=== PATIENT | female | born 1965 | race Caucasian/White ===

== ENCOUNTER 2018-03-29 00:40 | Inpatient (IN) | payer MEDICARE ==
[2018-03-29] MEDS ORDERED: Ondansetron ODT 8 MG TAB ONE (03:04)
[2018-03-29] MEDS ORDERED: Diabetic Tussin 200 MG/10 ML UDCUP PO PRN (07:05)
[2018-03-29] MEDS ORDERED: Senokot 8.6 MG TAB PO PRN (07:05)
[2018-03-29] MEDS ORDERED: Eucerin (Mineral Oil/Petrolatum,White) 30 gm Jar TOP PRN (07:05)
[2018-03-29] MEDS ORDERED: hydrALAZINE 20 MG/ML VIAL SLOW IVP PRN (07:05)
[2018-03-29] MEDS ORDERED: Ondansetron ODT 4 MG TAB PO PRN (07:05)
[2018-03-29] MEDS ORDERED: Dextrose 50% Abboject 50 ML SYRINGE SLOW IVP PRN (07:05)
[2018-03-29] MEDS ORDERED: Artificial Tears 18 DROP/0.9 ML EA EYE PRN (07:05)
[2018-03-29] MEDS ORDERED: Loratadine 10 MG TAB PO PRN (07:05)
[2018-03-29] MEDS ORDERED: Milk Of Magnesia 30 ML UDCUP PO PRN (07:05)
[2018-03-29] MEDS ORDERED: Loperamide HCl 2 MG CAP PO PRN (07:05)
[2018-03-29] MEDS ORDERED: Sodium Chloride 0.65% Nasal 44 ML BOT EA NARE PRN (07:05)
[2018-03-29] MEDS ORDERED: Mag-Al 1200 mg/1200 mg/30 ML UDCUP PO PRN (07:05)
[2018-03-29] MEDS ORDERED: Ondansetron HCl/PF 4 MG/2 ML Vial IVP PRN (07:05)
[2018-03-29] MEDS ORDERED: Dextrose 5% in Water 1,000 ML IV PRN (07:05)
[2018-03-29] MEDS ORDERED: HumaLOG 300 UNITS/3 ML VIAL SC PRN (07:05)
[2018-03-29] MEDS ORDERED: Chloraseptic Spray 180 ml Bottle PO PRN (07:05)
[2018-03-29] MEDS ORDERED: Nitroglycerin 0.4 MG TAB (25 Tab Bottle) SL PRN (07:05)
--- NOTE | 2018-03-29 10:36 | HP ---
PRIMARY CARE PHYSICIAN: Dr. Alicia Orourke. REASON FOR ADMISSION: Transfer from [facility] for new onset congestive heart failure a s well as nausea and vomiting. HISTORY OF PRESENT ILLNESS: A 52-year-old female who looks older than her stated age who has underly ing history of diabetes and hypertension who initially went to [facility] for complaint of nausea and vomiting. The patient has intermittent nausea and vomiting for the last 3 d ays. She is experiencing dyspnea on exertion for 2 weeks. She also has orthopnea as well as PND and bilateral lower extremity pitting edema, which was gradually getting worse since 4 days. The patien t denies any fever or chills. The patient does report that she has ulcer over left heel on plantar a spect and that is why she was given antibiotic therapy by primary care physician. The patient is dis abled. The patient lives with her in [place]. She does report dyspnea on exertion. She de nies any UTI symptoms. She denies any constipation, diarrhea, melena or hematochezia. She was satur ating normal in the emergency room. Patient reported that she was told that she has congestive heart failure, but she does not know any more detail about her congestive heart failure. REVIEW OF SYSTEMS: The following complete review of systems was negative, unless otherwise mentioned in the HPI or below: Constitutional: Weight loss or gain, ability to conduct usual activities. Skin: Rash, itching. Eyes: Double vision, pain. ENT/Mouth: Nose bleeding, neck stiffness, pain, tenderness. Cardiovascular: Palpitations, dyspnea on exertion, orthopnea. Respiratory: Shortness of breath, wheezing, cough, hemoptysis, fever or night sweats. Gastrointestinal: Poor appetite, abdominal pain, heartburn, nausea, vomiting, constipation, or diarr hea. Genitourinary: Urgency, frequency, dysuria, nocturia. Musculoskeletal: Pain, swelling. Neurologic/Psychiatric: Anxiety, depression. Allergy/Immunologic: Skin rash, bleeding tendency. Please see my HPI for pertinent positive and negative. All other review of systems reviewed and nega tive except as mentioned in the HPI. ALLERGIES: CECLOR, CIPROFLOXACIN and TRAMADOL. CURRENT HOME MEDICATIONS: Gabapentin 600 mg p.o. 3 times daily, metoprolol tartrate 50 mg p.o. daily , Lasix 40 mg p.o. b.i.d., Zoloft 100 mg p.o. daily, Aldactone 25 mg p.o. daily, lisinopril 2.5 mg p. o. daily, Lantus 12 units subcu 3 times daily, Humulin R 15 units 3 times daily. PAST MEDICAL HISTORY: Congestive heart failure, type of congestive heart failure not known, but susp ecting systolic heart failure, hypertension, diabetes type 2, diabetic neuropathy, diabetic nephropat hy, dyslipidemia, obesity, paroxysmal atrial fibrillation and peripheral vascular disease. PAST PSYCHIATRIC HISTORY: Anxiety and depression. PAST SURGICAL HISTORY: Amputation of right great toe, appendicectomy, cholecystectomy, history of ab scess to left breast required surgical drainage, tubal ligation. SOCIAL HISTORY: Patient is . She is on disability. No history of tobacco, alcohol or illici t drug abuse. FAMILY HISTORY: No strong family history of premature coronary artery disease, stroke or cancer. EMERGENCY ROOM COURSE: Patient is given Zofran 8 mg. The patient is given Lasix 80 mg, aspirin 324 mg, nitroglycerin patch at [place] [facility]. PHYSICAL EXAMINATION: VITAL SIGNS: On arrival, blood pressure 159/101, pulse 101, respiratory rate 16, temperature 98.1, s aturation 96% on room air, and weight 113.4 kilograms. GENERAL: Patient is currently alert, awake, no obvious acute distress. HEAD: Normocephalic, atraumatic. EYES: Pupils round, reactive to light. Extraocular muscle intact. ENT: Oropharynx within normal limits. Moist mucous membranes. No oral lesion, no pharyngeal erythe ma, no exudate. NECK: Supple, no JVD, no thyromegaly, no carotid bruit. LUNGS: Coarse breath sounds. No wheezing, no rhonchi, no rales, no accessory muscles of respiration in use. CARDIAC: S1 and S2 regular. No murmur elicited, no gallop, no rub. ABDOMEN: Obesity present. Bowel sounds present, nontender, nondistended. No organomegaly, no mass, no suprapubic tenderness. BACK: Examination unremarkable, no CVA tenderness. EXTREMITIES: Upper extremity passive movement of all joints are normal. Lower extremity bilateral + 4 pitting edema noted. Patient does have amputation of right great toe and patient does have diabeti c ulcer on the left heel. NEUROLOGIC: Nonfocal examination. SKIN: No skin rash. Skin grafting was done from her back which is healed scar. PSYCHIATRIC: Normal affect. IMAGING DATA AND SIGNIFICANT LABORATORY DATA: 1. EKG showing normal sinus rhythm, PVC, nonspecific intraventricular block. 2. Chest x-ray: Cardiomegaly, no acute process. 3. CBC: WBC 9.3, hemoglobin 12.3, platelet 255. 4. BMP: Sodium 138, potassium 3.7, chloride 99, carbon dioxide 25, anion gap 18, BUN 14, creatinine 1.24, glucose 385, calcium 9.6. 5. LFT: AST 14, ALT 12, alkaline phosphatase 94, albumin 3.5, lipase 22, CK-MB 1.5, troponin 0.010. BNP 2174.3. Urinalysis suggestive of suspected infection. ASSESSMENT AND PLAN/IMPRESSION: 1. Acute on chronic congestive heart failure exacerbation, suspecting systolic heart failure. The p atient has orthopnea, PND, pitting edema, elevated BNP. The patient will require admission for diure sis. The patient will be given with lisinopril 40 mg IV b.i.d., fluid restriction 1500 mL per day. We will also resume lisinopril 2.5 mg p.o. daily, Coreg 3.125 mg p.o. b.i.d., and Aldactone 25 mg p.o . daily. We will monitor input and output chart, daily weight and replace electrolytes as needed bas is. We will adjust cardiac medication depending upon hemodynamics. We will obtain echocardiography. Cardiac rehabilitation will be consulted. Dietitian will be consulted and heart failure education is given. 2. Diabetic foot ulcer on the left heel. Wound care team will be consulted. We will start empiric antibiotic therapy with vancomycin. 3. Diabetes mellitus type 2, uncontrolled. We will verify patient's home dose of insulin and we kishan l resume Levemir insulin as well as aggressive sliding scale Humalog insulin. Diabetic diet will be given. 4. Diabetic neuropathy. We will continue gabapentin as per home dosage 600 mg three times daily. 5. Anxiety and depression. We will continue Zoloft 100 mg p.o. daily. 6. Morbid obesity. Dietary education given and weight loss education given. Healthy lifestyle janet ures discussed with the patient. 7. Hypertension. Currently, the patient is on lisinopril, Coreg, Aldactone and Lasix. We will kimberly fy doses based on hemodynamics. 8. Chronic kidney disease stage 3. We will monitor renal function and avoid nephrotoxin agent. 9. Dyslipidemia. We will check lipid profile tomorrow morning along with TSH and then start statin therapy. 10. Deep venous thrombosis prophylaxis, Lovenox 40 mg subcu daily. 11. Gastrointestinal prophylaxis, Pepcid 20 mg p.o. b.i.d. 12. Code status: The patient is FULL CODE. The patient's is surrogate decision maker. Disposition plan based on clinical course. We are expecting patient's stay in hospital more than 2 m idnights. Plan of care discussed with the patient and family member in detail.
[2018-03-29] MEDS: Famotidine 20 MG TAB PO SCH ×2 (10:48→21:43)
[2018-03-29] MEDS: Lisinopril 2.5 MG TAB PO SCH (10:48)
[2018-03-29] MEDS: Enoxaparin Sodium 40 MG/0.4 ML SYRINGE SC SCH (10:48)
[2018-03-29] MEDS ORDERED: Vancomycin HCl 1.75 GM in Sodium Chloride 0.9% 500 ML IVPB SCH (11:00)
[2018-03-29] MEDS: Furosemide 20 MG/2 ML VIAL SLOW IVP SCH (13:05)
[2018-03-29] MEDS ORDERED: Furosemide 20 MG/2 ML VIAL SLOW IVP SCH (14:00)
[2018-03-29] MEDS: Acetaminophen 325 MG TAB PO PRN (15:54)
[2018-03-29] MEDS: Promethazine HCl 12.5 MG, Admixture Fee 1 EACH in Sodium Chloride 0.9% 50 ML IVPB PRN ×2 (15:55→22:47)
[2018-03-29] MEDS: HumaLOG 300 UNITS/3 ML VIAL SC PRN (16:38)
[2018-03-29] MEDS: Carvedilol 3.125 MG TAB PO SCH (21:43)
[2018-03-29] MEDS: Zolpidem Tartrate 5 MG TAB PO PRN (22:47)
[2018-03-30 06:05] LABS: #Basophils 0.1 thou/uL (0.0-0.2); #Eosinphils 0.2 thou/uL (0.0-0.7); #Lymphocytes 2.6 thou/uL (1.20-3.40); #Monocytes 0.7 thou/uL (0.11-0.59); %Basophils 0.6 % (0.0-1.0); %Eosinophils 2.1 % (0.0-10.0); %Lymphocytes 27.1 % (21.0-51.0); %Monocytes 7.1 % (0.0-10.0); %Neutrophils 63.1 % (42.0-75.0); Hemoglobin 10.6 g/dL (12.0-16.0); Mean Corpuscular Hemoglobin 23.5 pg (27.0-31.0); Mean Corpuscular Volume 75.8 fl (81.0-99.0); Mean Platelet Volume 9.3 fL (7.4-10.4); Platelet Count 232 thou/uL (130-400); RBC Distribution Width 15.4 % (11.5-14.5); Red Blood Cell (RBC) Count 4.52 mill/uL (4.20-5.40); White Blood Cell (WBC) Count 9.6 thou/uL (4.8-10.8)
[2018-03-30] MEDS: Furosemide 20 MG/2 ML VIAL SLOW IVP SCH ×2 (06:13→16:51)
[2018-03-30 07:19] LABS: ALT (SGPT) Less than 35 U/L (8-55); AST (SGOT) 12 U/L (5-34); Albumin 2.9 g/dL (3.5-5.0); Alkaline Phosphatase 79 U/L (40-150); Anion Gap 11 mmol/L (10-20); BUN (Urea Nitrogen) 14 mg/dL (9.8-20.1); Bilirubin, Total 0.8 mg/dL (0.2-1.2); Calc. Creatinine Clearance 107 mL/min (70-130); Calcium 8.5 mg/dL (7.8-10.44); Carbon Dioxide 29 mmol/L (22-29); Chloride 99 mmol/L (98-107); Cholesterol 109 mg/dl (< 200 Desired); Estimated GFR-MDRD 52; Glucose 155 mg/dL (70-105); HDL Cholesterol 22 mg/dL (>60 Neg Risk); LDL Cholesterol, Calculated 67 mg/dL; Magnesium 1.5 mg/dL (1.6-2.6); Protein, Total 5.9 g/dL (6.0-8.3); Sodium 136 mmol/L (136-145); Triglycerides 100 mg/dL (Less than 150); Uric Acid 8.2 mg/dL (2.6-6.0)
[2018-03-30 07:32] LABS: Potassium 2.7 mmol/L (3.5-5.1)
[2018-03-30] MEDS ORDERED: Potassium Chloride 20 MEQ TAB PO SCH (08:15)
[2018-03-30] MEDS ORDERED: Magnesium Sulfate 2 GM in Sodium Chloride 0.9% 100 ML IVPB SCH (08:30)
[2018-03-30] MEDS: Potassium Chloride 20 MEQ TAB PO SCH ×3 (10:06→16:51)
[2018-03-30] MEDS: Carvedilol 3.125 MG TAB PO SCH (10:06)
[2018-03-30] MEDS: Spironolactone 25 MG TAB PO SCH (10:07)
[2018-03-30] MEDS: Lisinopril 2.5 MG TAB PO SCH (10:07)
[2018-03-30] MEDS: Famotidine 20 MG TAB PO SCH ×2 (10:07→20:39)
[2018-03-30] MEDS: Enoxaparin Sodium 40 MG/0.4 ML SYRINGE SC SCH (10:07)
[2018-03-30] MEDS: Potassium Chloride 20 MEQ in Premix Bag 1 BAG IVPB SCH ×2 (10:08→12:30)
[2018-03-30] MEDS: Acetaminophen 325 MG TAB PO PRN (12:32)
[2018-03-30] MEDS: HumaLOG 300 UNITS/3 ML VIAL SC PRN ×2 (13:42→16:54)
--- NOTE | 2018-03-30 23:09 | PDOC.PN ---
- Subjective Encounter Start Date: 03/30/18 Encounter Start Time: 13:00 Patient seen and examined fo CHF. SOB improving. No new complaints. No overnight events - Objective Resuscitation Status: Resuscitation Status FULL:Full Resuscitation MAR Reviewed: Yes Vital Signs & Weight: Vital Signs (12 hours) Temp Pulse Resp BP Pulse Ox 03/30/18 17:00 96.1 F L 93 18 131/81 98 03/30/18 12:24 96.4 F L 90 18 141/85 H 96 Weight Admit Weight 250 lb Weight 248 lb 14.4 oz Result Diagrams: 03/30/18 05:38 03/30/18 05:38 Additional Labs: Accuchecks 03/30/18 03/30/18 03/30/18 20:30 16:55 10:37 POC Glucose 196 H 346 H 173 H 03/30/18 06:12 POC Glucose 194 H Phys Exam - Physical Examination Constitutional: NAD Respiratory: no wheezing, no rhonchi Scat rales at bases, Symmetrical Cardiovascular: RRR, no rub No heaves/pulsations Gastrointestinal: soft, non-tender, no distention, positive bowel sounds Musculoskeletal: pulses present, edema present Neurological: non-focal, moves all 4 limbs Psychiatric: normal affect, A&O x 3 Dx/Plan (1) Acute on chronic systolic (congestive) heart failure Code(s): I50.23 - ACUTE ON CHRONIC SYSTOLIC (CONGESTIVE) HEART FAILURE Status : Acute (2) DM2 (diabetes mellitus, type 2) Status: Chronic Qualifiers: Chronic kidney disease stage: stage 3 (moderate) (3) Obesity (BMI 30-39.9) Code(s): E66.9 - OBESITY, UNSPECIFIED Status: Chronic (4) Electrolyte abnormality Code(s): E87.8 - OTH DISORDERS OF ELECTROLYTE AND FLUID BALANCE, NEC Status: Acute (5) Chronic foot ulcer Code(s): L97.509 - NON-PRESSURE CHRONIC ULCER OTH PRT UNSP FOOT W UNSP SEVERITY Status: Chronic (6) HTN (hypertension) Code(s): I10 - ESSENTIAL (PRIMARY) HYPERTENSION Status: Acute - Plan DVT proph w/lovenox, DVT proph w/SCDs Replace electrolytes, Await Echo, Await Cardio consult -: Continue diuretics -: AM labs -: Change Coreg to home dose of Toprol XL Review of Systems - Review of Systems Constitutional: negative: fever, chills, sweats, weakness, malaise, other Respiratory: SOB with Excertion. negative: Cough, Dry, Shortness of Breath, Hemoptysis, Pleuritic Pain, Sputum, Wheezing Cardiovascular: edema. negative: chest pain, palpitations, orthopnea, paroxysmal nocturnal dyspnea, light headedness, other Gastrointestinal: negative: Nausea, Vomiting, Abdominal Pain, Diarrhea, Constipation, Melena, Hematochezia, Other - Medications/Allergies Allergies/Adverse Reactions: Allergies Allergy/AdvReac Type Severity Reaction Status Date / Time tramadol HCl [From Ultram] Allergy Mild Rash Verified 03/29/18 10:24 cefaclor [From Ceclor] Allergy Verified 03/29/18 10:24 ciprofloxacin [From Cipro] Allergy Verified 03/29/18 10:24 ciprofloxacin HCl Allergy Verified 03/29/18 10:24 [From Cipro] vancomycin Allergy Verified 03/29/18 15:11 Medications: Current Medications Acetaminophen (Tylenol) 650 mg PO Q4H PRN PRN Reason: Headache/Fever or Pain Last Admin: 03/30/18 12:32 Dose: 650 mg Al Hydroxide/Mg Hydroxide (Maalox) 30 ml PO Q6H PRN PRN Reason: Heartburn or Indigestion Albuterol/Ipratropium (Duoneb) 3 ml NEB [id number] PRN PRN Reason: SOB &/or Wheezing Artificial Tears (Tears Naturale) 0 drop EA EYE PRN PRN PRN Reason: Dry Eyes Aspirin (Aspirin Chewable) 81 mg PO DAILY [facility] Last Admin: 03/30/18 10:06 Dose: 81 mg Dextrose/Water (Dextrose 50%) 25 gm SLOW IVP PRN PRN PRN Reason: Hypoglycemia Enoxaparin Sodium (Lovenox) 40 mg SC 0900 [facility] Last Admin: 03/30/18 10:07 Dose: 40 mg Famotidine (Pepcid) 20 mg PO BID [facility] Last Admin: 03/30/18 20:39 Dose: 20 mg Furosemide (Lasix) 40 mg SLOW IVP 0600,1400 [facility] Last Admin: 03/30/18 16:51 Dose: 40 mg Glucagon (Glucagon) 1 mg IM PRN PRN PRN Reason: Hypoglycemia Guaifenesin (Robitussin Sf) 200 mg PO Q4H PRN PRN Reason: Cough Hydralazine HCl (Apresoline) 10 mg SLOW IVP Q4H PRN PRN Reason: Systolic BP > 180 Dextrose/Water (D5w) 1,000 mls @ 0 mls/hr IV .Q0M PRN; As Directed PRN Reason: Hypoglycemia Promethazine HCl 12.5 mg/Miscellaneous Medication 1 each/ Sodium Chloride 50.5 mls @ 202 mls/hr IVPB Q6H PRN; Protocol PRN Reason: Nausea Last Admin: 03/29/18 22:47 Dose: 50.5 mls Insulin Human Lispro (Humalog) 0 units SC .AGGRESSIVE SLIDING PRN PRN Reason: Aggressive Correctional Scale Last Admin: 03/30/18 16:54 Dose: 11 unit Insulin Human Lispro (Humalog) 0 units SC .BEDTIME SLIDING SC PRN PRN Reason: Bedtime Correctional Scale Lisinopril (Zestril) 2.5 mg PO DAILY [facility] Last Admin: 03/30/18 10:07 Dose: 2.5 mg Loperamide HCl (Imodium) 2 mg PO PRN PRN PRN Reason: Diarrhea/Loose Stools Last Admin: 03/30/18 17:08 Dose: 2 mg Loratadine (Claritin) 10 mg PO DAILYPRN PRN PRN Reason: Sinus Symptoms Magnesium Hydroxide (Milk Of Magnesium) 30 ml PO DAILYPRN PRN PRN Reason: Constipation Metoprolol Succinate (Toprol Xl) 50 mg PO DAILY [facility] Mineral Oil/White Petrolatum (Eucerin Cream) 0 gm TOP BIDPRN PRN PRN Reason: Dry Skin Nitroglycerin (Nitrostat) 0.4 mg SL Q5MIN PRN PRN Reason: Chest Pain Ondansetron HCl (Zofran Odt) 4 mg PO Q6H PRN PRN Reason: Nausea/Vomiting Last Admin: 03/29/18 13:29 Dose: 4 mg Ondansetron HCl (Zofran) 4 mg IVP Q6H PRN PRN Reason: Nausea/Vomiting Phenol (Chloraseptic [place] 180 Ml Bot) 0 ml PO PRN PRN PRN Reason: Sore Throat Potassium Chloride (K-Dur) 40 meq PO TID-[facility] Last Admin: 03/30/18 16:51 Dose: 40 meq Senna (Senokot) 2 tab PO HSPRN PRN PRN Reason: Constipation Sodium Chloride ([place] Nasal [place] 0.65%) 0 ml EA NARE QIDPRN PRN PRN Reason: Nasal Congestion Spironolactone (Aldactone) 25 mg PO [facility] Last Admin: 03/30/18 10:07 Dose: 25 mg Zolpidem Tartrate (Ambien) 5 mg PO HSPRN PRN PRN Reason: Insomnia Last Admin: 03/29/18 22:47 Dose: 5 mg
[2018-03-31] MEDS: Zolpidem Tartrate 5 MG TAB PO PRN ×2 (00:24→20:52)
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
[2018-03-31] MEDS: Furosemide 20 MG/2 ML VIAL SLOW IVP SCH ×2 (06:31→13:15)
[2018-03-31] MEDS: Lisinopril 2.5 MG TAB PO SCH (09:31)
[2018-03-31] MEDS: Spironolactone 25 MG TAB PO SCH (09:32)
[2018-03-31] MEDS: Potassium Chloride 20 MEQ TAB PO SCH ×3 (09:32→17:08)
[2018-03-31] MEDS: Famotidine 20 MG TAB PO SCH ×2 (09:32→20:52)
[2018-03-31] MEDS: Enoxaparin Sodium 40 MG/0.4 ML SYRINGE SC SCH (09:33)
[2018-03-31 10:59] LABS: #Eosinphils 0.2 thou/uL (0.0-0.7); #Lymphocytes 1.4 thou/uL (1.20-3.40); #Monocytes 0.6 thou/uL (0.11-0.59); #Neutrophils 4.5 thou/uL (1.40-6.50); %Basophils 0.7 % (0.0-1.0); %Eosinophils 3.7 % (0.0-10.0); %Lymphocytes 20.1 % (21.0-51.0); %Monocytes 8.9 % (0.0-10.0); %Neutrophils 66.7 % (42.0-75.0); Hemoglobin 11.1 g/dL (12.0-16.0); Mean Corpuscular Hemoglobin 23.3 pg (27.0-31.0); Mean Corpuscular Volume 75.2 fl (81.0-99.0); Mean Platelet Volume 9.4 fL (7.4-10.4); Platelet Count 248 thou/uL (130-400); RBC Distribution Width 15.5 % (11.5-14.5); Red Blood Cell (RBC) Count 4.76 mill/uL (4.20-5.40); White Blood Cell (WBC) Count 6.8 thou/uL (4.8-10.8)
[2018-03-31] MEDS ORDERED: Melatonin 3 MG TAB PO PRN (11:00)
[2018-03-31 11:15] LABS: Anion Gap 13 mmol/L (10-20); BUN (Urea Nitrogen) 16 mg/dL (9.8-20.1); Calc. Creatinine Clearance 91 mL/min (70-130); Calcium 8.5 mg/dL (7.8-10.44); Carbon Dioxide 30 mmol/L (22-29); Chloride 96 mmol/L (98-107); Estimated GFR-MDRD 44; Glucose 337 mg/dL (70-105); Magnesium 1.8 mg/dL (1.6-2.6); Phosphorus 3.5 mg/dL (2.3-4.7); Potassium 3.5 mmol/L (3.5-5.1); Sodium 135 mmol/L (136-145)
[2018-03-31] MEDS ORDERED: Insulin Glargine 10 UNITS in Pre-Filled Syringe 1 EACH SC SCH (12:00)
[2018-03-31] MEDS: HumaLOG 300 UNITS/3 ML VIAL SC PRN (12:04)
[2018-03-31] MEDS: Gabapentin 300 MG CAP PO SCH ×2 (13:13→20:52)
--- NOTE | 2018-03-31 15:01 | PDOC.CTH ---
<Crystal Schilling - Last Filed: 03/31/18 14:58> Cardiology Progress Note - Subjective The pt seen and examined. No overnight events. No cardiac complaints. - Objective Vital Signs Temp Pulse Pulse Pulse Resp BP BP 03/31/18 08:58 92 102 H 142/88 H 124/78 03/31/18 08:00 97.6 F 91 16 03/31/18 07:59 97.6 F 91 16 03/31/18 05:00 98.5 F 85 18 BP Pulse Ox Pulse Ox Pulse Ox 03/31/18 08:58 97 96 03/31/18 08:00 100 03/31/18 07:59 138/71 99 03/31/18 05:00 135/72 Admit Weight 250 lb Weight 248 lb 6.4 oz - Physical Examination General/Neuro: alert & oriented x3 Neck: no JVD present Lungs: CTA Heart: RRR Abdomen: soft Extremities: other: (Dressing to Rt foot. no edema) - Telemetry Telemetry Rhythm: SA PACs - Labs Result Diagrams: 03/31/18 10:37 03/31/18 10:37 - Assessment/Plan 1. Acute on chronic combined HF - Stable with Toprolol 50mg qd, Lisinopril, Lasix 40mg IV BID, and Spironolactone. Cont. to monitor 2. CMY - Echo on 03/30/18 showed EF 10-15% and diastolic dysfunction. EP consult for possible AICD placement. 3. HTN - stable 4. Paroxysmal AFib - Remains in SR with PACs. On BBlocker and ASA, and Lovenox ; cont. to monitor on tele 5. DM type 2 - managed by PCP 6. CKD stage 3 - cont. to monitor 7. Obese - MAR reviewed Review of Systems - Review of Systems Constitutional: reports: no symptoms reported EENTM: reports: no symptoms reported Respiratory: reports: no symptoms reported Cardiac (ROS): reports: no symptoms reported ABD/GI: reports: no symptoms reported : reports: no symptoms reported Musculoskeletal: reports: no symptoms reported <Katie Pang - Last Filed: 03/31/18 21:50> Cardiology Progress Note - Objective Vital Signs Temp Pulse Resp BP BP BP Pulse Ox 03/31/18 16:05 98.1 F 84 16 112/70 98 03/31/18 12:20 98.4 F 82 16 125/69 125/69 95 Admit Weight 250 lb Weight 248 lb 6.4 oz 03/30/18 03/31/18 04/01/18 06:59 06:59 06:59 Intake Total 600 Output Total 1000 Balance -400 - Labs Result Diagrams: 03/31/18 10:37 03/31/18 10:37 - Assessment/Plan Pt. seen and eval. by me. I agree with the A/P by the BUSINESS WRITER. We have discussed the plan.
--- NOTE | 2018-03-31 16:21 | PDOC.PN ---
- Subjective Encounter Start Date: 03/31/18 Encounter Start Time: 10:30 Patient seen and examined for CHF. No new complaints. No overnight events - Objective Resuscitation Status: Resuscitation Status FULL:Full Resuscitation MAR Reviewed: Yes Vital Signs & Weight: Vital Signs (12 hours) Temp Pulse Pulse Pulse Resp BP BP 03/31/18 08:58 92 102 H 142/88 H 124/78 03/31/18 08:00 97.6 F 91 16 03/31/18 07:59 97.6 F 91 16 03/31/18 05:00 98.5 F 85 18 BP Pulse Ox Pulse Ox Pulse Ox 03/31/18 08:58 97 96 03/31/18 08:00 100 03/31/18 07:59 138/71 99 03/31/18 05:00 135/72 Weight Admit Weight 250 lb Weight 248 lb 6.4 oz Result Diagrams: 03/31/18 10:37 03/31/18 10:37 Additional Labs: Accuchecks 03/31/18 03/31/18 03/30/18 10:30 05:52 20:30 POC Glucose 320 H 199 H 196 H 03/30/18 16:55 POC Glucose 346 H EKG Reviewed by me: Yes (Tele SR) Phys Exam - Physical Examination Constitutional: NAD Respiratory: no wheezing, no rhonchi Bibasilar rales Cardiovascular: RRR, no rub Gastrointestinal: soft, no distention Musculoskeletal: edema present (L>R) Neurological: moves all 4 limbs Psychiatric: A&O x 3 Dx/Plan (1) Acute on chronic systolic (congestive) heart failure Code(s): I50.23 - ACUTE ON CHRONIC SYSTOLIC (CONGESTIVE) HEART FAILURE Status : Acute Comment: EF 10-15 % (systolic and diastolic) (2) DM2 (diabetes mellitus, type 2) Status: Chronic Qualifiers: Chronic kidney disease stage: stage 3 (moderate) Comment: uncontrolled (3) Obesity (BMI 30-39.9) Code(s): E66.9 - OBESITY, UNSPECIFIED Status: Chronic (4) Electrolyte abnormality Code(s): E87.8 - OTH DISORDERS OF ELECTROLYTE AND FLUID BALANCE, NEC Status: Acute Comment: Hypokalemia, Hypomagnesemia (5) Chronic foot ulcer Code(s): L97.509 - NON-PRESSURE CHRONIC ULCER OTH PRT UNSP FOOT W UNSP SEVERITY Status: Chronic (6) HTN (hypertension) Code(s): I10 - ESSENTIAL (PRIMARY) HYPERTENSION Status: Chronic - Plan respiratory therapy, DVT proph w/lovenox, DVT proph w/SCDs Cont diuretics with Potassium supplementation, fluid restriction, ACEI, BB -: Change Lantus to 10 units BID with aggressive sliding scale -: LLE doppler to r/o DVT -: Cont other meds as below -: AM labs Review of Systems - Review of Systems Respiratory: SOB with Excertion. negative: Cough, Dry, Shortness of Breath, Hemoptysis, Pleuritic Pain, Sputum, Wheezing Cardiovascular: edema. negative: chest pain, palpitations, orthopnea, paroxysmal nocturnal dyspnea, light headedness, other Gastrointestinal: negative: Nausea, Vomiting, Abdominal Pain, Diarrhea, Constipation, Melena, Hematochezia, Other - Medications/Allergies Allergies/Adverse Reactions: Allergies Allergy/AdvReac Type Severity Reaction Status Date / Time tramadol HCl [From Ultram] Allergy Mild Rash Verified 03/29/18 10:24 cefaclor [From Ceclor] Allergy Verified 03/29/18 10:24 ciprofloxacin [From Cipro] Allergy Verified 03/29/18 10:24 ciprofloxacin HCl Allergy Verified 03/29/18 10:24 [From Cipro] vancomycin Allergy Verified 03/29/18 15:11 Medications: Current Medications Acetaminophen (Tylenol) 650 mg PO Q4H PRN PRN Reason: Headache/Fever or Pain Last Admin: 03/30/18 12:32 Dose: 650 mg Al Hydroxide/Mg Hydroxide (Maalox) 30 ml PO Q6H PRN PRN Reason: Heartburn or Indigestion Albuterol/Ipratropium (Duoneb) 3 ml NEB [id number] PRN PRN Reason: SOB &/or Wheezing Artificial Tears (Tears Naturale) 0 drop EA EYE PRN PRN PRN Reason: Dry Eyes Aspirin (Aspirin Chewable) 81 mg PO DAILY [facility] Last Admin: 03/31/18 09:32 Dose: 81 mg Dextrose/Water (Dextrose 50%) 25 gm SLOW IVP PRN PRN PRN Reason: Hypoglycemia Enoxaparin Sodium (Lovenox) 40 mg SC 0900 [facility] Last Admin: 03/31/18 09:33 Dose: 40 mg Famotidine (Pepcid) 20 mg PO BID [facility] Last Admin: 03/31/18 09:32 Dose: 20 mg Furosemide (Lasix) 40 mg SLOW IVP 0600,1400 [facility] Last Admin: 03/31/18 13:15 Dose: 40 mg Gabapentin (Neurontin) 600 mg PO TID [facility] Last Admin: 03/31/18 13:13 Dose: 600 mg Glucagon (Glucagon) 1 mg IM PRN PRN PRN Reason: Hypoglycemia Guaifenesin (Robitussin Sf) 200 mg PO Q4H PRN PRN Reason: Cough Hydralazine HCl (Apresoline) 10 mg SLOW IVP Q4H PRN PRN Reason: Systolic BP > 180 Dextrose/Water (D5w) 1,000 mls @ 0 mls/hr IV .Q0M PRN; As Directed PRN Reason: Hypoglycemia Promethazine HCl 12.5 mg/Miscellaneous Medication 1 each/ Sodium Chloride 50.5 mls @ 202 mls/hr IVPB Q6H PRN; Protocol PRN Reason: Nausea Last Admin: 03/29/18 22:47 Dose: 50.5 mls Insulin Glargine 10 units/ (Miscellaneous Medication) 0.1 mls @ 0 mls/hr SC BID [facility] Insulin Human Lispro (Humalog) 0 units SC .AGGRESSIVE SLIDING PRN PRN Reason: Aggressive Correctional Scale Last Admin: 03/31/18 12:04 Dose: 11 unit Insulin Human Lispro (Humalog) 0 units SC .BEDTIME SLIDING SC PRN PRN Reason: Bedtime Correctional Scale Lisinopril (Zestril) 2.5 mg PO DAILY [facility] Last Admin: 03/31/18 09:31 Dose: 2.5 mg Loperamide HCl (Imodium) 2 mg PO PRN PRN PRN Reason: Diarrhea/Loose Stools Last Admin: 03/30/18 17:08 Dose: 2 mg Loratadine (Claritin) 10 mg PO DAILYPRN PRN PRN Reason: Sinus Symptoms Magnesium Hydroxide (Milk Of Magnesium) 30 ml PO DAILYPRN PRN PRN Reason: Constipation Melatonin (Melatonin) 3 mg PO HS PRN PRN Reason: Insomnia Metoprolol Succinate (Toprol Xl) 50 mg PO DAILY [facility] Last Admin: 03/31/18 09:32 Dose: 50 mg Mineral Oil/White Petrolatum (Eucerin Cream) 0 gm TOP BIDPRN PRN PRN Reason: Dry Skin Nitroglycerin (Nitrostat) 0.4 mg SL Q5MIN PRN PRN Reason: Chest Pain Ondansetron HCl (Zofran Odt) 4 mg PO Q6H PRN PRN Reason: Nausea/Vomiting Last Admin: 03/29/18 13:29 Dose: 4 mg Ondansetron HCl (Zofran) 4 mg IVP Q6H PRN PRN Reason: Nausea/Vomiting Phenol (Chloraseptic [place] 180 Ml Bot) 0 ml PO PRN PRN PRN Reason: Sore Throat Potassium Chloride (K-Dur) 20 meq PO TID-[facility] Last Admin: 03/31/18 13:13 Dose: 20 meq Senna (Senokot) 2 tab PO HSPRN PRN PRN Reason: Constipation Sertraline HCl (Zoloft) 100 mg PO DAILY [facility] Sodium Chloride ([place] Nasal [place] 0.65%) 0 ml EA NARE QIDPRN PRN PRN Reason: Nasal Congestion Sodium Chloride (Flush - Normal Saline) 10 ml IVF Q12HR [facility] Sodium Chloride (Flush - Normal Saline) 10 ml IVF PRN PRN PRN Reason: Saline Flush Spironolactone (Aldactone) 25 mg PO QAM-WM [facility] Last Admin: 03/31/18 09:32 Dose: 25 mg Zolpidem Tartrate (Ambien) 5 mg PO HSPRN PRN PRN Reason: Insomnia Last Admin: 03/31/18 00:24 Dose: 2.5 mg
--- NOTE | 2018-03-31 17:05 | ULT ---
LEFT LOWER EXTREMITY VENOUS DOPPLER ULTRASOUND: Date: 03/31/18 HISTORY: Left lower extremity swelling AND PAIN. TECHNIQUE: Multiple longitudinal and transverse images of the left lower extremity venous system obtained using a multihertz linear array transducer. Real-time, color flow, and spectral waveform Doppler analysis i s used to evaluate the left lower extremity venous system. FINDINGS: No evidence of acute or old clot seen in the left common femoral, superficial femoral, femoral profun da, popliteal, posterior tibial vein, and post-trifurcation vein. There does appear to be some clot seen in the left greater saphenous vein proximally. More distally, the left greater saphenous vein is patent. IMPRESSION: Acute partially occlusive clot in the left greater saphenous vein. POS: [facility]
[2018-03-31] MEDS: Insulin Glargine 10 UNITS in Pre-Filled Syringe 1 EACH SC SCH (20:52)
[2018-03-31] MEDS: Acetaminophen 325 MG TAB PO PRN (21:07)
[2018-04-01] MEDS: Furosemide 20 MG/2 ML VIAL SLOW IVP SCH ×2 (04:57→13:04)
[2018-04-01 05:41] LABS: #Basophils 0.1 thou/uL (0.0-0.2); #Eosinphils 0.3 thou/uL (0.0-0.7); #Lymphocytes 2.8 thou/uL (1.20-3.40); #Monocytes 0.8 thou/uL (0.11-0.59); #Neutrophils 3.7 thou/uL (1.40-6.50); %Basophils 1.2 % (0.0-1.0); %Eosinophils 4.5 % (0.0-10.0); %Lymphocytes 36.6 % (21.0-51.0); %Monocytes 9.9 % (0.0-10.0); %Neutrophils 47.7 % (42.0-75.0); Hemoglobin 11.7 g/dL (12.0-16.0); Mean Corpuscular HGB CONC 31.5 g/dL (32.0-36.0); Mean Corpuscular Volume 76.1 fl (81.0-99.0); Mean Platelet Volume 9.6 fL (7.4-10.4); Platelet Count 286 thou/uL (130-400); RBC Distribution Width 15.5 % (11.5-14.5); Red Blood Cell (RBC) Count 4.88 mill/uL (4.20-5.40); White Blood Cell (WBC) Count 7.7 thou/uL (4.8-10.8)
[2018-04-01 06:03] LABS: Anion Gap 12 mmol/L (10-20); BUN (Urea Nitrogen) 18 mg/dL (9.8-20.1); Calc. Creatinine Clearance 97 mL/min (70-130); Calcium 8.8 mg/dL (7.8-10.44); Carbon Dioxide 28 mmol/L (22-29); Chloride 99 mmol/L (98-107); Estimated GFR-MDRD 47; Glucose 204 mg/dL (70-105); Magnesium 2.1 mg/dL (1.6-2.6); Phosphorus 3.9 mg/dL (2.3-4.7); Potassium 4.1 mmol/L (3.5-5.1); Sodium 135 mmol/L (136-145)
[2018-04-01] MEDS: HumaLOG 300 UNITS/3 ML VIAL SC PRN ×2 (06:36→13:07)
[2018-04-01] MEDS: Famotidine 20 MG TAB PO SCH ×2 (09:31→20:15)
[2018-04-01] MEDS: Spironolactone 25 MG TAB PO SCH (09:32)
[2018-04-01] MEDS: Gabapentin 300 MG CAP PO SCH ×3 (09:32→20:15)
[2018-04-01] MEDS: Lisinopril 2.5 MG TAB PO SCH (09:32)
[2018-04-01] MEDS: Enoxaparin Sodium 40 MG/0.4 ML SYRINGE SC SCH (09:33)
[2018-04-01] MEDS: Potassium Chloride 20 MEQ TAB PO SCH ×3 (09:34→17:13)
[2018-04-01] MEDS: Insulin Glargine 10 UNITS in Pre-Filled Syringe 1 EACH SC SCH ×2 (09:48→21:23)
[2018-04-01] MEDS ORDERED: Insulin Glargine 10 UNITS in Pre-Filled Syringe 1 EACH SC SCH (11:45)
[2018-04-01 12:43] VITALS: BMI 36.6
--- NOTE | 2018-04-01 19:20 | CON ---
DATE OF CONSULTATION: 04/01/2018 This is an electrophysiology consultation report. REFERRING PHYSICIAN: Herlinda Pang MD I am seeing Ms. Castrejon at our [facility] telemetry floor as an electrophysiology executive consultant. His problems are: 1. Chronic systolic congestive heart failure with likely nonischemic cardiomyopathy. A. 2D echo on 03/30/2018 that reveals LVEF 10%-15%, moderately enlarged right ventricle, moderate richard ral regurgitation, mildly enlarged right atrium, mild tricuspid regurgitation, elevated pulmonary pre ssures. B. Remote history of heart catheterization; negative per patient, but details are not available to jakob Ramey. Current admission with acute heart failure exacerbation. 2. Coronary artery risk factors. A. Hypertension. B. Type 2 diabetes. 3. History of diabetic neuropathy. 4. Peripheral vascular disease with healing foot abscess. 5. Obesity. 6. Chronic kidney disease, stage 3. 7. Nonsustained ventricular tachycardia and also trifascicular block. ALLERGIES: TRAMADOL, CEFACLOR, CIPROFLOXACIN, VANCOMYCIN. MEDICATIONS: Prior to admission included famotidine, loperamide, sertraline, metoprolol succinate, L evemir insulin, melatonin, aspirin 325 daily, spironolactone, lisinopril, furosemide, gabapentin. SUBJECTIVE: Ms. Castrejon is here with heart failure exacerbation. She seems to be doing better now with diuresis. She is followed by Dr. Pang who asked me to evaluate for her potential ICD implant. On admission, she was fairly short of breath. She has noted significant weight gain. It has been go ing on for 2 weeks. She also has had some PND for the last 4 days. She denies any fevers or chills. She does have some ulcer in her left heel in the plantar aspect and she was on antibiotic for this. She denies stroke-like symptoms. No bleeding issues. No neurological deficits. She does not pass out. She has no palpitations. Rest of 12-point systems is otherwise unremarkable. PAST MEDICAL HISTORY: As above. She also has history of anxiety and depression. PAST SURGICAL HISTORY: Significant for right toe amputation, appendectomy, cholecystectomy, left graham ast abscess drainage, and tubal ligation. SOCIAL HISTORY: Patient is . No history of tobacco, ETOH, or drug use. FAMILY HISTORY: Significant for no strong family history of coronary artery disease, stroke, or canc er. OBJECTIVE: VITAL SIGNS: Blood pressure is 126/89, heart rate 86, respiratory rate 16, temperature 97.9 degrees Fahrenheit. GENERAL: Reveals an alert, oriented woman with elevated BMI in no apparent distress. NECK: Supple. Jugular veins are slightly distended. CHEST: Coarse without crackles. CARDIOVASCULAR: Heart sounds are regular to rate and rhythm. No murmur or gallop. ABDOMEN: Benign. Bowel sounds are positive. EXTREMITIES: Lower extremity without edema, clubbing, or cyanosis noted. DATABASE: Initial EKG reveals sinus rhythm, trifascicular block, occasional PVCs are appreciated. LABORATORY DATA: White cell count is 7.7, hemoglobin is 11.7, platelet count is 286. Sodium 135, po tassium 4.1, BUN is 18, creatinine 1.2. TSH is 0.5. The initial BNP is 1742. ASSESSMENT AND PLAN: Ms. Castrejon is a pleasant 52-year-old woman with history of diabetes and likely no nischemic cardiomyopathy. She is here with progressively worsening left ventricular systolic functio n and heart failure exacerbation. She had long history of cardiomyopathy. Back in the past, she wor e LifeVest, but that was stopped due to lack of funding. Although she is receiving medical therapy, her LV function is severely depressed. She also had hospitalization for fluid overload. I think it is very reasonable to consider for her to receive a prophylactic ICD implant. Hence the presence of trifascicular block, LV dyssynchrony is very possible, BiV stimulation could lao eld some benefit for her. I discussed pros and cons about these with the patient. She understands and willing to proceed. We will schedule her at a near date. We also discussed the issue of infection, although it seems that c urrently she has no systemic signs of infection present from her chronic leg ulcer.
[2018-04-01] MEDS: Acetaminophen 325 MG TAB PO PRN (22:23)
--- NOTE | 2018-04-01 23:06 | PDOC.CTH ---
Cardiology Progress Note - Subjective Pt. was seen and eval. today by me. No new events overnight . No new complaints. - Objective Vital Signs Temp Pulse Resp BP Pulse Ox 04/01/18 20:05 99.1 F 80 16 126/79 97 04/01/18 16:50 98.1 F 90 16 116/63 95 Admit Weight 250 lb Weight 248 lb 3.2 oz 03/31/18 04/01/18 04/02/18 06:59 06:59 06:59 Intake Total 600 240 Output Total 1000 1200 Balance -400 -960 - Physical Examination General/Neuro: alert & oriented x3 Neck: no JVD present Lungs: CTA Heart: RRR Abdomen: NT/ND - Labs Result Diagrams: 04/01/18 05:16 04/01/18 05:16 - Assessment/Plan 1. Nonischemic CMY with severe decrease in EF. This has been present for several years according to the pt. EP will see pt. in consultation for an AICD implant. 2. DM: has been poorly controlled. 3. Obesity. She has lost a considerable amount of weight.
--- NOTE | 2018-04-01 23:41 | PDOC.PN ---
- Subjective Encounter Start Date: 04/01/18 Encounter Start Time: 13:00 Patient seen and examined for CHF. No new complaints. No overnight events - Objective Resuscitation Status: Resuscitation Status FULL:Full Resuscitation MAR Reviewed: Yes Vital Signs & Weight: Vital Signs (12 hours) Temp Pulse Resp BP Pulse Ox 04/01/18 20:05 99.1 F 80 16 126/79 97 04/01/18 16:50 98.1 F 90 16 116/63 95 Weight Admit Weight 250 lb Weight 248 lb 3.2 oz I&O: 03/31/18 04/01/18 04/02/18 06:59 06:59 06:59 Intake Total 600 240 Output Total 1000 1200 Balance -400 -960 Result Diagrams: 04/01/18 05:16 04/01/18 05:16 Additional Labs: Accuchecks 04/01/18 04/01/18 04/01/18 20:54 16:40 11:05 POC Glucose 245 H 158 H 275 H EKG Reviewed by me: Yes (Tele SR) Phys Exam - Physical Examination Constitutional: NAD Respiratory: no wheezing, no rhonchi Cardiovascular: RRR, no rub Gastrointestinal: soft, non-tender, positive bowel sounds Musculoskeletal: edema present Neurological: moves all 4 limbs Dx/Plan (1) Acute on chronic systolic (congestive) heart failure Code(s): I50.23 - ACUTE ON CHRONIC SYSTOLIC (CONGESTIVE) HEART FAILURE Status : Acute Comment: EF 10-15 % (systolic and diastolic) - nonischemic CM (2) DM2 (diabetes mellitus, type 2) Status: Chronic Qualifiers: Chronic kidney disease stage: stage 3 (moderate) Comment: uncontrolled (3) Obesity (BMI 30-39.9) Code(s): E66.9 - OBESITY, UNSPECIFIED Status: Chronic (4) Electrolyte abnormality Code(s): E87.8 - OTH DISORDERS OF ELECTROLYTE AND FLUID BALANCE, NEC Status: Acute Comment: Hypokalemia, Hypomagnesemia (5) Chronic foot ulcer Code(s): L97.509 - NON-PRESSURE CHRONIC ULCER OTH PRT UNSP FOOT W UNSP SEVERITY Status: Chronic (6) HTN (hypertension) Code(s): I10 - ESSENTIAL (PRIMARY) HYPERTENSION Status: Chronic - Plan DVT proph w/lovenox, DVT proph w/SCDs AICD in AM -: Cont diuretics/ACEI/BB -: Cardio/EP following -: AM labs -: Cont current dose of Lantus due to NPO past MN. One extra dose Lantus today Review of Systems - Review of Systems Constitutional: negative: fever, chills, sweats, weakness, malaise, other Cardiovascular: negative: chest pain, palpitations, orthopnea, paroxysmal nocturnal dyspnea, edema, light headedness, other Gastrointestinal: negative: Nausea, Vomiting, Abdominal Pain, Diarrhea, Constipation, Melena, Hematochezia, Other - Medications/Allergies Allergies/Adverse Reactions: Allergies Allergy/AdvReac Type Severity Reaction Status Date / Time tramadol HCl [From Ultram] Allergy Mild Rash Verified 03/29/18 10:24 cefaclor [From Ceclor] Allergy Verified 03/29/18 10:24 ciprofloxacin [From Cipro] Allergy Verified 03/29/18 10:24 ciprofloxacin HCl Allergy Verified 03/29/18 10:24 [From Cipro] vancomycin Allergy Verified 03/29/18 15:11 Medications: Current Medications Acetaminophen (Tylenol) 650 mg PO Q4H PRN PRN Reason: Headache/Fever or Pain Last Admin: 04/01/18 22:23 Dose: 650 mg Al Hydroxide/Mg Hydroxide (Maalox) 30 ml PO Q6H PRN PRN Reason: Heartburn or Indigestion Albuterol/Ipratropium (Duoneb) 3 ml NEB [id number] PRN PRN Reason: SOB &/or Wheezing Artificial Tears (Tears Naturale) 0 drop EA EYE PRN PRN PRN Reason: Dry Eyes Aspirin (Aspirin Chewable) 81 mg PO DAILY [facility] Last Admin: 04/01/18 09:32 Dose: 81 mg Dextrose/Water (Dextrose 50%) 25 gm SLOW IVP PRN PRN PRN Reason: Hypoglycemia Enoxaparin Sodium (Lovenox) 40 mg SC 0900 [facility] Last Admin: 04/01/18 09:33 Dose: 40 mg Famotidine (Pepcid) 20 mg PO BID [facility] Last Admin: 04/01/18 20:15 Dose: 20 mg Furosemide (Lasix) 40 mg SLOW IVP 0600,1400 [facility] Last Admin: 04/01/18 13:04 Dose: 40 mg Gabapentin (Neurontin) 600 mg PO TID [facility] Last Admin: 04/01/18 20:15 Dose: 600 mg Glucagon (Glucagon) 1 mg IM PRN PRN PRN Reason: Hypoglycemia Guaifenesin (Robitussin Sf) 200 mg PO Q4H PRN PRN Reason: Cough Hydralazine HCl (Apresoline) 10 mg SLOW IVP Q4H PRN PRN Reason: Systolic BP > 180 Dextrose/Water (D5w) 1,000 mls @ 0 mls/hr IV .Q0M PRN; As Directed PRN Reason: Hypoglycemia Promethazine HCl 12.5 mg/Miscellaneous Medication 1 each/ Sodium Chloride 50.5 mls @ 202 mls/hr IVPB Q6H PRN; Protocol PRN Reason: Nausea Last Admin: 03/29/18 22:47 Dose: 50.5 mls Insulin Glargine 10 units/ (Miscellaneous Medication) 0.1 mls @ 0 mls/hr SC BID [facility] Last Admin: 04/01/18 21:23 Dose: 0.1 mls Insulin Human Lispro (Humalog) 0 units SC .AGGRESSIVE SLIDING PRN PRN Reason: Aggressive Correctional Scale Last Admin: 04/01/18 13:07 Dose: 9 unit Insulin Human Lispro (Humalog) 0 units SC .BEDTIME SLIDING SC PRN PRN Reason: Bedtime Correctional Scale Last Admin: 03/31/18 21:36 Dose: 3 unit Lisinopril (Zestril) 2.5 mg PO DAILY [facility] Last Admin: 04/01/18 09:32 Dose: 2.5 mg Loperamide HCl (Imodium) 2 mg PO PRN PRN PRN Reason: Diarrhea/Loose Stools Last Admin: 03/30/18 17:08 Dose: 2 mg Loratadine (Claritin) 10 mg PO DAILYPRN PRN PRN Reason: Sinus Symptoms Magnesium Hydroxide (Milk Of Magnesium) 30 ml PO DAILYPRN PRN PRN Reason: Constipation Melatonin (Melatonin) 3 mg PO HS PRN PRN Reason: Insomnia Metoprolol Succinate (Toprol Xl) 50 mg PO DAILY [facility] Last Admin: 04/01/18 09:32 Dose: 50 mg Mineral Oil/White Petrolatum (Eucerin Cream) 0 gm TOP BIDPRN PRN PRN Reason: Dry Skin Nitroglycerin (Nitrostat) 0.4 mg SL Q5MIN PRN PRN Reason: Chest Pain Ondansetron HCl (Zofran Odt) 4 mg PO Q6H PRN PRN Reason: Nausea/Vomiting Last Admin: 03/29/18 13:29 Dose: 4 mg Ondansetron HCl (Zofran) 4 mg IVP Q6H PRN PRN Reason: Nausea/Vomiting Phenol (Chloraseptic [place] 180 Ml Bot) 0 ml PO PRN PRN PRN Reason: Sore Throat Potassium Chloride (K-Dur) 20 meq PO TID-[facility] Last Admin: 04/01/18 17:13 Dose: 20 meq Senna (Senokot) 2 tab PO HSPRN PRN PRN Reason: Constipation Sertraline HCl (Zoloft) 100 mg PO DAILY [facility] Last Admin: 04/01/18 09:31 Dose: 100 mg Sodium Chloride ([place] Nasal [place] 0.65%) 0 ml EA NARE QIDPRN PRN PRN Reason: Nasal Congestion Sodium Chloride (Flush - Normal Saline) 10 ml IVF Q12HR [facility] Last Admin: 04/01/18 20:15 Dose: 10 ml Sodium Chloride (Flush - Normal Saline) 10 ml IVF PRN PRN PRN Reason: Saline Flush Spironolactone (Aldactone) 25 mg PO QAM-[facility] Last Admin: 04/01/18 09:32 Dose: 25 mg Zolpidem Tartrate (Ambien) 5 mg PO HSPRN PRN PRN Reason: Insomnia Last Admin: 03/31/18 20:52 Dose: 5 mg
[2018-04-02] MEDS ORDERED: Aztreonam 1 GM in Sodium Chloride 0.9% 100 ML IVPB SCH (01:45)
[2018-04-02] MEDS ORDERED: Clindamycin/D5W 900 MG in Premix Bag 1 BAG IVPB SCH (01:45)
[2018-04-02 05:31] LABS: Anion Gap 9 mmol/L (10-20); BUN (Urea Nitrogen) 22 mg/dL (9.8-20.1); Calc. Creatinine Clearance 92 mL/min (70-130); Calcium 8.8 mg/dL (7.8-10.44); Carbon Dioxide 31 mmol/L (22-29); Chloride 99 mmol/L (98-107); Estimated GFR-MDRD 44; Glucose 182 mg/dL (70-105); Potassium 3.8 mmol/L (3.5-5.1); Sodium 135 mmol/L (136-145)
[2018-04-02] MEDS: Furosemide 40 MG/4 ML VIAL SLOW IVP SCH ×2 (05:36→13:54)
[2018-04-02] MEDS ORDERED: PROPOFOL 200 MG/20 ML VIAL ONE (07:02)
[2018-04-02] MEDS: Insulin Glargine 10 UNITS in Pre-Filled Syringe 1 EACH SC SCH ×2 (08:27→21:12)
[2018-04-02] MEDS: Enoxaparin Sodium 40 MG/0.4 ML SYRINGE SC SCH (08:27)
[2018-04-02] MEDS: Gabapentin 300 MG CAP PO SCH ×3 (08:30→21:12)
[2018-04-02] MEDS: Spironolactone 25 MG TAB PO SCH (08:31)
[2018-04-02] MEDS: Famotidine 20 MG TAB PO SCH ×2 (08:31→21:12)
[2018-04-02] MEDS: Potassium Chloride 20 MEQ TAB PO SCH ×4 (08:31→18:22)
[2018-04-02] MEDS: Lisinopril 2.5 MG TAB PO SCH (08:32)
[2018-04-02] MEDS ORDERED: Iopamidol 370 76% 50 ML VIAL FS ONE (13:55)
--- NOTE | 2018-04-02 14:06 | PDOC.PN ---
- Subjective Encounter Start Date: 04/02/18 Encounter Start Time: 14:01 Subjective: no new complaints. breathing harder when moves around - Objective Resuscitation Status: Resuscitation Status FULL:Full Resuscitation MAR Reviewed: Yes Vital Signs & Weight: Vital Signs (12 hours) Temp Pulse Resp BP BP BP Pulse Ox 04/02/18 12:00 97.9 F 74 16 120/72 99 04/02/18 08:40 97.8 F 119 H 16 97 04/02/18 08:32 101 H 112/78 04/02/18 07:40 98.2 F 74 16 112/78 97 04/02/18 05:28 76 20 114/67 04/02/18 04:00 97.8 F 78 18 105/65 96 Weight Admit Weight 250 lb Weight 248 lb 14.4 oz I&O: 04/01/18 04/02/18 04/03/18 06:59 06:59 06:59 Intake Total 600 744 150 Output Total 1000 2000 Balance -400 -1256 150 Result Diagrams: 04/01/18 05:16 04/03/18 04:33 Additional Labs: Accuchecks 04/02/18 04/02/18 04/01/18 10:45 06:31 20:54 POC Glucose 161 H 177 H 245 H 04/01/18 16:40 POC Glucose 158 H Microbiology 03/29/18 16:35 Urine clean catch Urine Culture - Final Laboratory Tests 03/30/18 03/31/18 04/01/18 05:38 10:37 05:16 Creatinine 1.10 1.28 H 1.20 H Phys Exam - Physical Examination Constitutional: NAD HEENT: PERRLA, moist MMs, sclera anicteric, oral pharynx no lesions Neck: no nodes, no JVD, supple, full ROM Respiratory: no wheezing, no rales, no rhonchi, clear to auscultation bilateral Cardiovascular: RRR, no significant murmur, no rub Gastrointestinal: soft, non-tender, no distention, positive bowel sounds Musculoskeletal: no edema, pulses present Neurological: non-focal, normal sensation, moves all 4 limbs Psychiatric: normal affect, A&O x 3 Skin: no rash Dx/Plan (1) Acute on chronic systolic (congestive) heart failure Code(s): I50.23 - ACUTE ON CHRONIC SYSTOLIC (CONGESTIVE) HEART FAILURE Status : Acute Comment: EF 10-15 % (systolic and diastolic) - nonischemic CM (2) HALI (acute kidney injury) Code(s): N17.9 - ACUTE KIDNEY FAILURE, UNSPECIFIED Status: Acute (3) Electrolyte abnormality Code(s): E87.8 - OTH DISORDERS OF ELECTROLYTE AND FLUID BALANCE, NEC Status: Acute Comment: Hypokalemia, Hypomagnesemia (4) Chronic foot ulcer Code(s): L97.509 - NON-PRESSURE CHRONIC ULCER OTH PRT UNSP FOOT W UNSP SEVERITY Status: Chronic (5) DM2 (diabetes mellitus, type 2) Status: Chronic Qualifiers: Chronic kidney disease stage: stage 3 (moderate) Comment: uncontrolled (6) HTN (hypertension) Code(s): I10 - ESSENTIAL (PRIMARY) HYPERTENSION Status: Chronic (7) Obesity (BMI 30-39.9) Code(s): E66.9 - OBESITY, UNSPECIFIED Status: Chronic (8) Superficial vein thrombosis Code(s): I82.890 - ACUTE EMBOLISM AND THROMBOSIS OF OTHER SPECIFIED VEINS Status: Acute Comment: non occlusive. - Plan plan discussed w/ family, PT/OT, out of bed/ambulate, DVT proph w/SCDs AICD today.HD stable. -: cont ASA,BB,VLAD-I,Aldactone,lasix. -: strict I/os.fluid restriction -: am labs. * . Review of Systems - Review of Systems Constitutional: weakness ENT: negative: Ear Pain, Ear Discharge, Nose Pain, Nose Discharge, Nose Congestion, Mouth Pain, Mouth Swelling, Throat Pain, Throat Swelling, Other Respiratory: negative: Cough, Dry, Shortness of Breath, Hemoptysis, SOB with Excertion, Pleuritic Pain, Sputum, Wheezing Cardiovascular: negative: chest pain, palpitations, orthopnea, paroxysmal nocturnal dyspnea, edema, light headedness, other Gastrointestinal: negative: Nausea, Vomiting, Abdominal Pain, Diarrhea, Constipation, Melena, Hematochezia, Other Genitourinary: negative: Dysuria, Frequency, Incontinence, Hematuria, Retention , Other Musculoskeletal: negative: Neck Pain, Shoulder Pain, Arm Pain, Back Pain, Hand Pain, Leg Pain, Foot Pain, Other Skin: negative: Rash, Lesions, Alvaro, Bruising, Other Neurological: negative: Weakness, Numbness, Incoordination, Change in Speech, Confusion, Seizures, Other - Medications/Allergies Allergies/Adverse Reactions: Allergies Allergy/AdvReac Type Severity Reaction Status Date / Time tramadol HCl [From Ultram] Allergy Mild Rash Verified 03/29/18 10:24 cefaclor [From Ceclor] Allergy Verified 03/29/18 10:24 ciprofloxacin [From Cipro] Allergy Verified 03/29/18 10:24 ciprofloxacin HCl Allergy Verified 03/29/18 10:24 [From Cipro] vancomycin Allergy Verified 03/29/18 15:11 Medications: Current Medications Acetaminophen (Tylenol) 650 mg PO Q4H PRN PRN Reason: Headache/Fever or Pain Last Admin: 04/01/18 22:23 Dose: 650 mg Al Hydroxide/Mg Hydroxide (Maalox) 30 ml PO Q6H PRN PRN Reason: Heartburn or Indigestion Last Admin: 04/02/18 06:35 Dose: 30 ml Albuterol/Ipratropium (Duoneb) 3 ml NEB [id number] PRN PRN Reason: SOB &/or Wheezing Artificial Tears (Tears Naturale) 0 drop EA EYE PRN PRN PRN Reason: Dry Eyes Aspirin (Aspirin Chewable) 81 mg PO DAILY [facility] Last Admin: 04/02/18 08:31 Dose: 81 mg Dextrose/Water (Dextrose 50%) 25 gm SLOW IVP PRN PRN PRN Reason: Hypoglycemia Enoxaparin Sodium (Lovenox) 40 mg SC 0900 [facility] Last Admin: 04/02/18 08:27 Dose: Not Given Famotidine (Pepcid) 20 mg PO BID [facility] Last Admin: 04/02/18 08:31 Dose: 20 mg Furosemide (Lasix) 40 mg SLOW IVP 0600,1400 [facility] Last Admin: 04/02/18 13:54 Dose: Not Given Furosemide (Lasix) 40 mg SLOW IVP 1700 [facility] Stop: 04/02/18 18:00 Gabapentin (Neurontin) 600 mg PO TID [facility] Last Admin: 04/02/18 13:55 Dose: Not Given Gabapentin (Neurontin) 600 mg PO 1700 [facility] Stop: 04/02/18 18:00 Glucagon (Glucagon) 1 mg IM PRN PRN PRN Reason: Hypoglycemia Guaifenesin (Robitussin Sf) 200 mg PO Q4H PRN PRN Reason: Cough Hydralazine HCl (Apresoline) 10 mg SLOW IVP Q4H PRN PRN Reason: Systolic BP > 180 Dextrose/Water (D5w) 1,000 mls @ 0 mls/hr IV .Q0M PRN; As Directed PRN Reason: Hypoglycemia Promethazine HCl 12.5 mg/Miscellaneous Medication 1 each/ Sodium Chloride 50.5 mls @ 202 mls/hr IVPB Q6H PRN; Protocol PRN Reason: Nausea Last Admin: 03/29/18 22:47 Dose: 50.5 mls Insulin Glargine 10 units/ (Miscellaneous Medication) 0.1 mls @ 0 mls/hr SC BID [facility] Last Admin: 04/02/18 08:27 Dose: Not Given Clindamycin Phosphate/Dextrose (900 mg/ Device) 50 mls @ 50 mls/hr IVPB ONCALL- OR DANIKA Stop: 04/02/18 19:00 Aztreonam 1 gm/ Sodium (Chloride) 100 mls @ 100 mls/hr IVPB ONCALL-OR DANIKA Stop: 04/02/18 19:00 Insulin Human Lispro (Humalog) 0 units SC .AGGRESSIVE SLIDING PRN PRN Reason: Aggressive Correctional Scale Last Admin: 04/01/18 13:07 Dose: 9 unit Insulin Human Lispro (Humalog) 0 units SC .BEDTIME SLIDING SC PRN PRN Reason: Bedtime Correctional Scale Last Admin: 03/31/18 21:36 Dose: 3 unit Lisinopril (Zestril) 2.5 mg PO DAILY [facility] Last Admin: 04/02/18 08:32 Dose: 2.5 mg Loperamide HCl (Imodium) 2 mg PO PRN PRN PRN Reason: Diarrhea/Loose Stools Last Admin: 03/30/18 17:08 Dose: 2 mg Loratadine (Claritin) 10 mg PO DAILYPRN PRN PRN Reason: Sinus Symptoms Magnesium Hydroxide (Milk Of Magnesium) 30 ml PO DAILYPRN PRN PRN Reason: Constipation Melatonin (Melatonin) 3 mg PO HS PRN PRN Reason: Insomnia Metoprolol Succinate (Toprol Xl) 50 mg PO DAILY [facility] Last Admin: 04/02/18 05:35 Dose: 50 mg Mineral Oil/White Petrolatum (Eucerin Cream) 0 gm TOP BIDPRN PRN PRN Reason: Dry Skin Nitroglycerin (Nitrostat) 0.4 mg SL Q5MIN PRN PRN Reason: Chest Pain Ondansetron HCl (Zofran Odt) 4 mg PO Q6H PRN PRN Reason: Nausea/Vomiting Last Admin: 03/29/18 13:29 Dose: 4 mg Ondansetron HCl (Zofran) 4 mg IVP Q6H PRN PRN Reason: Nausea/Vomiting Phenol (Chloraseptic Mccracken 180 Ml Bot) 0 ml PO PRN PRN PRN Reason: Sore Throat Potassium Chloride (K-Dur) 20 meq PO TID-[facility] Last Admin: 04/02/18 13:53 Dose: Not Given Potassium Chloride (K-Dur) 20 meq PO 1700 [facility] Stop: 04/02/18 18:00 Senna (Senokot) 2 tab PO HSPRN PRN PRN Reason: Constipation Sertraline HCl (Zoloft) 100 mg PO DAILY [facility] Last Admin: 04/02/18 08:31 Dose: 100 mg Sodium Chloride (Republic Nasal Mccracken 0.65%) 0 ml EA NARE QIDPRN PRN PRN Reason: Nasal Congestion Sodium Chloride (Flush - Normal Saline) 10 ml IVF Q12HR [facility] Last Admin: 04/02/18 08:34 Dose: 10 ml Sodium Chloride (Flush - Normal Saline) 10 ml IVF PRN PRN PRN Reason: Saline Flush Last Admin: 04/02/18 05:36 Dose: 10 ml Spironolactone (Aldactone) 25 mg PO QA-[facility] Last Admin: 04/02/18 08:31 Dose: 25 mg Zolpidem Tartrate (Ambien) 5 mg PO HSPRN PRN PRN Reason: Insomnia Last Admin: 03/31/18 20:52 Dose: 5 mg
[2018-04-02] MEDS ORDERED: Midazolam HCl 2 mg/2 ml Vial ONE (14:46)
[2018-04-02] MEDS ORDERED: PROPOFOL 40 ML ONE (14:46)
[2018-04-02] MEDS ORDERED: Lidocaine 1% (PF) 30 ML VIAL ONE (14:47)
[2018-04-02] MEDS ORDERED: CEFAZOLIN/Water 2 GM/20 ML SYRINGE ONE (14:47)
--- NOTE | 2018-04-02 15:08 | PDOC.CTH ---
Cardiology Progress Note - Subjective The pt seen and examined. No overnight events. No cardiac complaints. - Objective Vital Signs Temp Pulse Resp BP BP BP Pulse Ox 04/02/18 12:00 97.9 F 74 16 120/72 99 04/02/18 08:40 97.8 F 119 H 16 97 04/02/18 08:32 101 H 112/78 04/02/18 07:40 98.2 F 74 16 112/78 97 04/02/18 05:28 76 20 114/67 04/02/18 04:00 97.8 F 78 18 105/65 96 Admit Weight 250 lb Weight 248 lb 14.4 oz 04/01/18 04/02/18 04/03/18 06:59 06:59 06:59 Intake Total 600 744 150 Output Total 1000 2000 Balance -400 -1256 150 - Physical Examination General/Neuro: alert & oriented x3 Neck: no JVD present Lungs: CTA Heart: RRR Abdomen: soft Extremities: other: (Dressing to Lt foot;) - Telemetry Telemetry Rhythm: Sr 1st AVB; - Labs Result Diagrams: 04/01/18 05:16 04/02/18 05:02 - Assessment/Plan 1. Nonischemic CMY with severe decrease in EF - AICD placement today. Cont ASA , BB, VLAD-I, Aldactone, and Lasix. 2. DM type 2 - has been poorly controlled. 3. Obesity - She has lost a considerable amount of weight. 4. HTN - stable with current meds 5. Superficial vein thrombosis - On Lovenox. MAR reviewed Review of Systems - Review of Systems Constitutional: reports: no symptoms reported EENTM: reports: no symptoms reported Respiratory: reports: no symptoms reported Cardiac (ROS): reports: no symptoms reported ABD/GI: reports: no symptoms reported : reports: no symptoms reported Musculoskeletal: reports: no symptoms reported
[2018-04-02] MEDS ORDERED: Propofol 500 MG/50 ML VIAL ONE (15:59)
[2018-04-02] MEDS ORDERED: Gabapentin 300 MG CAP PO SCH (17:00)
[2018-04-02] MEDS ORDERED: Furosemide 40 MG/4 ML VIAL SLOW IVP SCH (17:00)
--- NOTE | 2018-04-02 18:12 | RAD ---
PORTABLE CHEST: 04/02/2018 PROVIDED CLINICAL HISTORY: Post AICD placement. COMPARISON: 03/28/2018 FINDINGS: The cardiac silhouette remains enlarged. Interval placement of a left subclavian cardiac pacing chemo ce with lead tips overlying the expected locations of the RA, the RV, and the coronary sinus. Vascul ar calcification is seen. No focal consolidation, pleural fluid, or pneumothorax is apparent. IMPRESSION: Interval placement of cardiac pacing device without evidence for complication. POS: BRE
[2018-04-02] MEDS: Acetaminophen 325 MG TAB PO PRN (18:19)
[2018-04-03] MEDS: Acetaminophen 325 MG TAB PO PRN (02:22)
[2018-04-03 05:07] LABS: Anion Gap 10 mmol/L (10-20); BUN (Urea Nitrogen) 26 mg/dL (9.8-20.1); Calc. Creatinine Clearance 91 mL/min (70-130); Calcium 8.5 mg/dL (7.8-10.44); Carbon Dioxide 28 mmol/L (22-29); Chloride 101 mmol/L (98-107); Estimated GFR-MDRD 43; Glucose 243 mg/dL (70-105); Potassium 3.8 mmol/L (3.5-5.1); Sodium 135 mmol/L (136-145)
[2018-04-03] MEDS: Furosemide 40 MG/4 ML VIAL SLOW IVP SCH (05:38)
[2018-04-03] MEDS: Potassium Chloride 20 MEQ TAB PO SCH ×2 (09:31→13:10)
[2018-04-03] MEDS: Spironolactone 25 MG TAB PO SCH (09:31)
[2018-04-03] MEDS: Lisinopril 2.5 MG TAB PO SCH (09:32)
[2018-04-03] MEDS: Famotidine 20 MG TAB PO SCH (09:32)
[2018-04-03] MEDS: Enoxaparin Sodium 40 MG/0.4 ML SYRINGE SC SCH (09:32)
[2018-04-03] MEDS: Insulin Glargine 10 UNITS in Pre-Filled Syringe 1 EACH SC SCH (09:32)
[2018-04-03] MEDS: Gabapentin 300 MG CAP PO SCH ×2 (09:32→13:10)
--- NOTE | 2018-04-03 11:22 | PDOC.CTH ---
Cardiology Progress Note - Subjective The pt seen and examined. No overnight events. No cardiac complaints. - Objective Vital Signs Temp Pulse Resp BP Pulse Ox 04/03/18 07:25 98.7 F 84 12 131/73 98 04/03/18 04:00 98.8 F 88 18 121/65 97 04/03/18 00:00 75 16 132/86 Admit Weight 250 lb Weight 249 lb 04/02/18 04/03/18 04/04/18 06:59 06:59 06:59 Intake Total 744 400 Output Total 2000 650 Balance -1256 -250 - Physical Examination General/Neuro: alert & oriented x3 Neck: no JVD present Lungs: CTA Heart: RRR Abdomen: soft Extremities: other: (Dressint to LLE) - Telemetry Telemetry Rhythm: V paced - Labs Result Diagrams: 04/01/18 05:16 04/03/18 04:33 - Assessment/Plan 1. Non-ischemic CMY with severe decrease in EF - AICD placement on 04/02/18. She is having impose from her AICD to her diaphragm. Cont ASA, BB, VLAD-I, Aldactone, and Lasix. 2. DM type 2 - has been poorly controlled. 3. Obesity - eating education given to the pt and family. 4. HTN - stable with current meds 5. Superficial vein thrombosis - On Lovenox. MAR reviewed * from Cardiac standpoint, the pt is stable to d/c home once her AICD is re- evaluated and adjusted by [employer]. * The pt will f/u with Dr Pang's office within 2-4 wks. * Cont. ASA 325mg daily for high risk of fall. Review of Systems - Review of Systems Constitutional: reports: no symptoms reported EENTM: reports: no symptoms reported Respiratory: reports: no symptoms reported Cardiac (ROS): reports: no symptoms reported ABD/GI: reports: no symptoms reported : reports: no symptoms reported Musculoskeletal: reports: no symptoms reported
[2018-04-03 13:15] VITALS: BP 135/91; TEMP 97.7
[2018-04-03] MEDS: HumaLOG 300 UNITS/3 ML VIAL SC PRN (13:23)
--- NOTE | 2018-04-03 13:50 | PDOC.CTH ---
<Louann Cid - Last Filed: 04/03/18 13:49> Cardiology Progress Note - Subjective EP progress note: Patient seen and evaluated. C/O abd stimulation from LV lead. [employer] contacted. No additional twitching since 2AM. Tenderness at implant site, improving. No additional cardiac concerns or complaints today. Overall, she feels well. - Objective Vital Signs Temp Pulse Resp BP BP Pulse Ox 04/03/18 12:00 97.7 F 96 16 135/91 H 96 04/03/18 08:00 98.7 F 84 12 98 04/03/18 07:25 98.7 F 84 12 131/73 98 04/03/18 04:00 98.8 F 88 18 121/65 97 Admit Weight 250 lb Weight 249 lb 04/02/18 04/03/18 04/04/18 06:59 06:59 06:59 Intake Total 744 400 Output Total 1999 650 Balance -1256 -250 - Physical Examination General/Neuro: alert & oriented x3, NAD Neck: carotid US brisk, no JVD present Lungs: unlabored respirations Heart: RRR Abdomen: NT/ND, soft - Telemetry Telemetry Rhythm: NSR - Labs Result Diagrams: 04/01/18 05:16 04/03/18 04:33 - Assessment/Plan NICM, EF severely reduced- s/p Bi-V ICD implant 04/02/18. abd wall stim from LV lead resolved. Device check complete and stable. Ok for discharge by EP. wound check in 7-10 days at [facility]. Routine follow up in 4-6 weeks. Continue PO anbx post implant- prescription for clindamycin is in the front of the chart. <Tho Alegre - Last Filed: 04/03/18 17:57> Cardiology Progress Note - Objective Vital Signs Temp Pulse Resp BP BP Pulse Ox 04/03/18 12:00 97.7 F 96 16 135/91 H 96 04/03/18 08:00 98.7 F 84 12 98 04/03/18 07:25 98.7 F 84 12 131/73 98 Admit Weight 250 lb Weight 249 lb 04/02/18 04/03/18 04/04/18 06:59 06:59 06:59 Intake Total 744 400 Output Total 1999 650 Balance -1256 -250 - Labs Result Diagrams: 04/01/18 05:16 04/03/18 04:33 Attending Addendum - Attending Addendum Date/Time: 04/03/18 701 I personally evaluated the patient and discussed the management with Ms Cid. I agree with the History, Examination, Assessment and Plan documented above with any addition or exceptions noted below.
--- NOTE | 2018-04-03 14:38 | EKG ---
Test Reason : Blood Pressure : / mmHG Vent. Rate : 083 BPM Atrial Rate : 083 BPM P-R Int : 126 ms QRS Dur : 154 ms QT Int : 484 ms P-R-T Axes : 051 109 -81 degrees QTc Int : 568 ms Sinus rhythm with Premature ventricular complexes or Fusion complexes Non-specific intra-ventricular conduction block Lateral infarct , age undetermined Abnormal ECG Confirmed by DUSTIN ALAN ([id number]), supervising film or videotape editor JONATHAN JOVEL ([id number]) on 04/03/2018 2:37:39 PM Referred By: Confirmed By:DUSTIN ALAN
--- NOTE | 2018-04-03 21:32 | DIS ---
DATE OF ADMISSION: 03/29/2018 DATE OF DISCHARGE: 04/03/2018 CONDITION AT THE TIME OF DISCHARGE: Stable and improved. DISCHARGE DISPOSITION: Home. PRIMARY CARE PHYSICIAN: Sharad Vargas MD. DISCHARGE DIAGNOSES: 1. Acute on chronic systolic congestive heart failure with ejection fraction of 10%-15%. 2. Acute kidney injury. 3. Hypokalemia and hypomagnesemia, resolved. 4. Chronic foot ulcer. 5. Diabetes mellitus type 2. 6. Hypertension. 7. Obesity. 8. Superficial lower extremity nonocclusive blood clot. 9. History of nonischemic cardiomyopathy. DISCHARGE MEDICATIONS: As follows. 1. Clindamycin 300 mg every 6 hours by electrophysiology for AICD placement. 2. Levemir 10 units b.i.d. 3. Insulin regular sliding scale 12 units t.i.d. 4. Melatonin 3 mg at bedtime as needed. 5. Aspirin 325 mg daily. 6. Aldactone 25 mg daily. 7. Lisinopril 5 mg daily. 8. Gabapentin 1200 mg p.o. t.i.d. 9. Famotidine 20 mg p.o. b.i.d. 10. Zoloft 100 mg daily. 11. Metoprolol succinate 50 mg daily. 12. Potassium chloride 10 mEq p.o. b.i.d. 13. Lasix 40 mg daily. INHOUSE CONSULTATION: 1. Cardiology, Herlinda Pang MD. 2. Electrophysiology, Tho Alegre MD. PROCEDURES DONE IN THE HOSPITAL: 1. Transthoracic echocardiogram, which shows EF of 10%-15% and severely depressed left ventricular f unction with enlargement of the right ventricle and left atrium and moderately elevated pulmonary art erial pressure. 2. Multiple chest x-rays. 3. Placement of AICD on 04/02/2018 successfully. DISCHARGE FOLLOWUP: 1. Outpatient cardiac rehabilitation. 2. [facility]. 3. [facility]. 4. Cardiology, Herlinda Pang MD. 5. Electrophysiology, Tho Alegre MD. 6. Primary care physician, Sharad Vargas MD. HISTORY OF PRESENTING ILLNESS: Ms. Castrejon is a very pleasant 52-year-old female with a past medical hi story of known congestive heart failure, but workup not here in this facility who presented to [facility] Emergency Room for complaints of nausea, vomiting, orthopnea, PND and lower extremity mechelle a getting worse over the last 4 days. She also reported upon presentation that she has a chronic ulc er on her left heel, which she has been self medicating and dressing, but also at the same time picki ng on it with failure to heal. Upon presentation, she was hemodynamically stable with oxygen saturat ion of 96% on room air. Her workup included a normal chest x-ray and 12-lead EKG. Her blood work sh owed BNP of 2174. She was admitted with a presumptive diagnosis of acute on chronic congestive heart failure exacerbation with unknown baseline. Cardiology was consulted. Echocardiogram was ordered a nd she was started on IV diuretics with resumption of her VLAD inhibitor, beta ruth ann and Aldactone. Please see admission history and physical for further details. Please also note that wound care tea m and inpatient cardiac rehabilitation were also consulted at the time of admission. HOSPITAL COURSE: The patient was seen by Cardiology and was adequately diuresed. Her echocardiogram came back as ejection fraction showing to be low at 10%-15%. Cardiology recommended placement of an AICD. The patient had history of remote heart catheterization, negative results per patient, so it was suspected that this was a nonischemic cardiomyopathy. Electrophysiology was consulted by Dr. Kamilla lewis and Dr. Alegre saw the patient. He thought that she was an appropriate candidate for placement of th e pacemaker. She gave history that she used to wear a LifeVest, but stopped wearing that because of lack of funding. After she gave consent, she received ICD placement, which was a biventricular succe ssfully, yesterday. She was monitored overnight after this. As of this morning, the patient is back to her baseline and is hemodynamically stable and has been cl eared by Cardiology and Electrophysiology for discharge home. Her medications have been reconciled a nd prescriptions were provided for any new medications including antibiotics. She was seen and examined prior to discharge. PHYSICAL EXAMINATION: Her physical examination this morning include, VITAL SIGNS: Temperature 97.7, pulse of 96, respirations 16, saturating 96% on room air, blood press ure 135/91. GENERAL: No acute distress, awake, alert and oriented x3. CHEST: Clear to auscultation without any wheezing, rales or rhonchi. Rate and rhythm is regular wit hout any murmur, rubs or gallops. ABDOMEN: Soft, nontender and nondistended. EXTREMITIES: Free of any cyanosis, clubbing or edema. She was instructed to follow up with outpatient cardiac rehabilitation and wound care for her left fo ot. Wound care has dressed it and taken care of while she was in the hospital. She was also given r eferral to [facility] for long-term followup. Discharge plan was discussed with the patient and her family and all questions were answered. They verbalized understanding. Total time spent in the discharge of this patient is 35 minutes including [id number] interaction.
[2018-04-04] MEDS ORDERED: Furosemide 40 MG TAB PO SCH (07:30)
== END 2018-04-03 14:33 | disposition home or self-care (01) | DRG 226 ==
LOC: ERS 00:40 → ERHOLD 02:13 → 2NO 09:41
PROVIDERS: ADMIT Family Medicine; ATTEND Family Medicine
PROC: 0JH609Z Insertion of Cardiac Resynchronization Defibrillator Pulse Generator into Chest Subcutaneous Tissue and Fascia, Open Approach (ICD-10-PCS; principal; 2018-04-02)
PROC: 02HK3KZ Insertion of Defibrillator Lead into Right Ventricle, Percutaneous Approach (ICD-10-PCS; 2018-04-02)
PROC: 02H70KZ Insertion of Defibrillator Lead into Left Atrium, Open Approach (ICD-10-PCS; 2018-04-02)
PROC: 02HL3KZ Insertion of Defibrillator Lead into Left Ventricle, Percutaneous Approach (ICD-10-PCS; 2018-04-02)
DX: I13.0 Hypertensive heart and chronic kidney disease with heart failure and stage 1 through stage 4 chronic kidney disease, or unspecified chronic kidney disease (principal); I50.43 Acute on chronic combined systolic (congestive) and diastolic (congestive) heart failure; I47.1 Supraventricular tachycardia; N17.9 Acute kidney failure, unspecified; I82.819 Embolism and thrombosis of superficial veins of unspecified lower extremity; N18.3 Chronic kidney disease, stage 3 (moderate); E11.22 Type 2 diabetes mellitus with diabetic chronic kidney disease; I48.0 Paroxysmal atrial fibrillation; Z89.421 Acquired absence of other right toe(s); Z88.8 Allergy status to other drugs, medicaments and biological substances; Z88.1 Allergy status to other antibiotic agents; Z79.899 Other long term (current) drug therapy; Z79.4 Long term (current) use of insulin; E11.40 Type 2 diabetes mellitus with diabetic neuropathy, unspecified; E78.5 Hyperlipidemia, unspecified; I73.9 Peripheral vascular disease, unspecified; F32.9 Major depressive disorder, single episode, unspecified; F41.9 Anxiety disorder, unspecified; E11.621 Type 2 diabetes mellitus with foot ulcer; E66.01 Morbid (severe) obesity due to excess calories; E87.6 Hypokalemia; E83.42 Hypomagnesemia; B95.8 Unspecified staphylococcus as the cause of diseases classified elsewhere; I42.8 Other cardiomyopathies; Z68.36 Body mass index [BMI] 36.0-36.9, adult
CPT/HCPCS: 33225; 33249; 36005; 36415; 36416; 71045; 75820; 80048; 80053; 80061; 83735; 83880; 84100; 84443; 84550; 85025; 87086; 93005; 93306; 93641; 93798; A4216; C1777; C1882; C1898; C1900; J1650; J1940; J2001; J2250; J2550; J2704; J3370; J3475; J3480; J3490; J7050; Q0162